=== PATIENT | male | born 1990 | race Hispanic/Latino ===

== ENCOUNTER 2019-04-30 03:02 | Emergency (ER) | payer BC ==
[2019-04-30] MEDS ORDERED: TETANUS/DIPHTHERIA TOXOID [ADULT] 0.5 ML VIAL IM ONE (03:18)
[2019-04-30] MEDS ORDERED: IBUPROFEN 200 MG TAB ONE (03:27)
[2019-04-30] MEDS ORDERED: ACETAMINOPHEN EXTRA STRENGTH 500 MG TABLET ONE (03:27)
[2019-04-30] MEDS ORDERED: LIDOCAINE HCL-MPF 1% 2ML VIAL ONE (03:28)
== END 2019-04-30 04:40 | disposition home or self-care (01) ==
LOC: EDH 03:02
DX: S61.512A Laceration without foreign body of left wrist, initial encounter (principal); R51 Headache; W27.8XXA Contact with other nonpowered hand tool, initial encounter; Y93.89 Activity, other specified; Y92.89 Other specified places as the place of occurrence of the external cause; Y99.8 Other external cause status
CPT/HCPCS: 90471; 90714; 99284; J3490